=== PATIENT | male | born 1975 ===

== ENCOUNTER → 2024-10-19 | Outpatient (CLI) | payer SELFPAY ==
[2024-10-19 13:09] LABS: Chlamydia Trachomatis Urine NOT DETECTED (NOT DETECT); Neisseria Gonorrhoea Urine NOT DETECTED (NOT DETECT)
== END | disposition home or self-care (01) ==
LOC: LAB SHORT 08:58
PROVIDERS: Physician Assistant
DX: B37.9 Candidiasis, unspecified (principal)
CPT/HCPCS: 87491; 87591